=== PATIENT | female | born 1990 | race Caucasian/White ===

== ENCOUNTER 2025-02-27 11:13 | Emergency (ER) | payer MEDICAID ==
[~2025-02-27] VITALS: Ht 157.5 cm; Wt 54.4 kg
[2025-02-27 11:14] VITALS: BP 104/71
[2025-02-27] MEDS ORDERED: AMOX-319 PO (11:33)
[2025-02-27] MEDS ORDERED: AMOXICILLIN-CLAVUL 875-125MG TABLET ONE (11:40)
[2025-02-27] MEDS ORDERED: TDAP DIPH,PERTUSS,TET VAC/PF 0.5 ML DISP.SYRIN IM ONE (11:41)
[2025-02-27] MEDS: AMOXICILLIN-CLAVUL 875-125MG TABLET PO ONE (11:45)
[2025-02-27] MEDS: TDAP DIPH,PERTUSS,TET VAC/PF 0.5 ML DISP.SYRIN IM ONE (11:45)
[2025-02-27 12:09] VITALS: BP 104/71; TEMP 97.9; O2SAT 98
== END 2025-02-27 12:12 | disposition home or self-care (01) ==
LOC: ER 11:13
DX: S61.431A Puncture wound without foreign body of right hand, initial encounter (principal); W55.01XA Bitten by cat, initial encounter; Y93.89 Activity, other specified; Y92.89 Other specified places as the place of occurrence of the external cause; Y99.9 Unspecified external cause status
CPT/HCPCS: 90715; A4606; A4663